=== PATIENT | male | born 1975 | race Caucasian/White ===

== ENCOUNTER → 2018-09-14 09:19 | Outpatient (CLI) | payer OTHER, SELFPAY ==
[2018-09-14 12:26] LABS: Anion Gap 11 (5-15); BUN 14 mg/dL (7-18); BUN/Creat Ratio 13.3 RATIO (10-20); Calcium,Total 8.7 mg/dL (8.5-10.1); Chloride 101 mmol/L (98-107); Cholesterol 258 mg/dL (200); Creatinine, Serum 1.05 mg/dL (0.70-1.30); EST Glomerular Filtration Rate 83 mL/min (>60); Est Glom Filt Rate - Afr Amer 100 mL/min (>60); Glucose 88 mg/dL (74-106); High Density Lipoprotein 40 mg/dL; Potassium 3.4 mmol/L (3.5-5.1); Sodium Level 138 mmol/L (136-145); Triglycerides 192 mg/dL; Uric Acid 8.9 mg/dL (3.5-7.2); Very Low Density Lipoprotein 38 mg/dL (5-40)
--- OUTSIDE RECORDS SUMMARY | 2018-11-16 16:18 | XMS RPT_ITS ---
:1975 Author Organization [facility] Care Team Providers Name Role Phone Edison Keen Attending Unavailable Edison Keen Primary Care Unavailable PROBLEMS PROBLEMS No Problem Records FoundPROCEDURES PROCEDURES No Procedure Records FoundRESULTS RESULTS BASIC METABOLIC Collected: 09/14/2018 Status: F Source: [facility]ILY[facility] PROFILE (BMP) 9:21 AM [facility] REPOSITORY TYPE CODE TESTS RESULT OUT OF RANGE REFERENCE UNITS LAB L501.0100 74-106 mg/dL Normal GLU 88 Result Comment: Please note revised GLUCOSE reference range effective 2017. LAB L501.1000 7-18 mg/dL Normal BUN 14 LAB L501.1100 0.70-1.30 mg/dL Normal CREAT,SERUM 1.05 Result Comment: The validity of the calculated GFR AND GFRAA in patients over 70 years has not been determined. Clinical correlation is essential. LAB L501.1110 >60 mL/min Normal EST GFR 83 Result Comment: Non- GFR Calc LAB L501.1115 >60 mL/min Normal EST GFR - AA 100 Result Comment: GFR Calc LAB L501.1300 10-20 RATIO Normal BUN/CRE 13.3 LAB L501.2200 8.5-10.1 mg/dL CA Normal 8.7 LAB L501.5300 136-145 mmol/L NA Normal 138 LAB L501.5600 3.5-5.1 mmol/L Low K 3.4 LAB L501.5900 98-107 mmol/L CL Normal 101 LAB L501.6100 21.0-32.0 mmol/L Normal CO2 26.0 LAB L501.6200 5-15 Normal GAP 11 Performed By: #### L500.2500, L500.4100, L501.1400 #### [facility] [address] [place], [place], [id number] LIPID PROFILE Collected: 09/14/2018 Status: F Source: [place] 9:21 AM [facility] REPOSITORY TYPE CODE TESTS RESULT OUT OF RANGE REFERENCE UNITS LAB L501.4900 200 mg/dL High CHOL 258 Result Comment: <200 mg/dL Desirable 200-240 mg/dL Borderline >240 mg/dL High Risk LAB L501.5000 mg/dL Normal TRIG 192 Result Comment: The drugs N-Acetylcysteine and Metamizole may falsely depress this assay. Serum Triglycerides Reference Interval Normal <150 mg/dL Borderline high 150 - 199 mg/dL High 200 - 499 mg/dL Very High > or = 500 mg/dL LAB L501.6400 mg/dL Normal HDL 40 Result Comment: The drugs N-Acetylcysteine and Metamizole may falsely depress this assay. Reference Range HDL <40 mg/dL Low HDL Cholesterol HDL >or= 60 mg/dL High HDL Cholesterol LAB L501.6500 0-130 mg/dL High LDL 180 LAB L501.6600 5-40 mg/dL Normal VLDL 38 Performed By: #### L500.2500, L500.4100, L501.1400 #### [facility] [address] [place], [place], [id number] URIC ACID Collected: 09/14/2018 Status: F Source: [place] 9:21 AM [facility] REPOSITORY TYPE CODE TESTS RESULT OUT OF RANGE REFERENCE UNITS LAB L501.1400 3.5-7.2 mg/dL High URIC 8.9 Result Comment: The drugs N-Acetylcysteine and Metamizole may falsely depress this assay. Performed By: #### L500.2500, L500.4100, L501.1400 #### [facility] [address] [place], [place], [id number] ALLERGIES ALLERGIES No Allergies Records FoundENCOUNTERS ENCOUNTERS ADMIT/DISCHARGE ACCOUNT ADMITTING ENCOUNTER LOCATION SOURCE NUMBER CLASS 09/14/2018 [id number] Ambulatory [address] ing:MFPLAB Repository PAYERS PAYERS ENCOUNTER GUARANTOR PAYER SUBSCRIBER SOURCE 09/14/2018 Celio Kline Primary Celio Billy [id number] Celina Insurance:AULTCARELito HastingsDOB: [address] [facility]: [id number], [id number] [place]ository [place] [address]Qnz: Date:[id number]) [address]WP: 09/14/2018 Secondary NOT GIVENUNK Marilynn Insurance:SELF PAY [facility] Number: Effective Repository Date:2018-09-14
== END ==
PROVIDERS: Family Provider Family Medicine; PCP Family Medicine; Visit Provider Family Medicine
DX: N20.1 Calculus of ureter (principal); I10 Essential (primary) hypertension; E78.00 Pure hypercholesterolemia, unspecified
CPT/HCPCS: 36415; 80048; 80061; 84550

== ENCOUNTER → 2018-12-15 | Outpatient (CLI) | payer OTHER, SELFPAY ==
--- NOTE | 2018-12-15 16:29 | RAD_ITS ---
STUDY: X-RAY CHEST REASON FOR EXAM: Male, 43 years old. History of pneumonia. Cough and hypoxemia. TECHNIQUE: PA and lateral chest COMPARISON: None. FINDINGS: The lungs are clear and expanded. Normal cardiomediastinal silhouette, thuan and pleural margins. No acute osseous or upper abdominal process. RAD/Chest PA and Lateral IMPRESSION: No acute cardiopulmonary process. Electronically Signed: Refugio Mendez MD at 17:16 EDT Tel , Service support ,
[2018-12-15 17:35] LABS: Absolute Lymphocyte Count 2.72 X10^3/ul (0.83-4.51); Absolute Neutrophil Count 4.2 X10^3/uL (2.0-7.7); Basophil# 0.02 X10^3/uL; Basophil% 0.3 % (0-1); Eosinophil# 0.22 X10^3/uL; Eosinophils% 2.8 % (0-5); Hematocrit 44.2 % (40-54); Hemoglobin 15.3 g/dl (13.0-16.5); Lymphocyte # 2.72 X10^3/ul (4.0); Lymphocyte % 34.9 % (19-41); Mean Corp Hgb Conc 34.6 g/gl (32-36); Mean Corpuscular Hgb 30.5 pg (27.0-32.0); Mean Corpuscular Volume 88.2 fL (80-94); Mean Platelet Vol. 9.4 fl (6.2-12.0); Monocyte# 0.64 X10^3/uL; Monocyte% 8.2 % (0-10); Neutrophil # 4.18 X10^3/uL (2.7-7.7); Neutrophil % 53.5 % (47-70); POSITIVE COUNT NO; POSITIVE DIFFERENTIAL NO; POSITIVE MORPHOLOGY NO; Platelet Count 192 K/mm3 (150-450); RBC Distribution Width SD 41.2 fl (35.1-43.9); Red Blood Count 5.01 M/mm3 (4.6-6.2); White Blood Count 7.8 K/mm3 (4.4-11.0)
[2018-12-15 17:44] LABS: Anion Gap 7 (5-15); BUN 21 mg/dL (7-18); Calcium,Total 8.8 mg/dL (8.5-10.1); Chloride 101 mmol/L (98-107); EST Glomerular Filtration Rate 87 mL/min (>60); Est Glom Filt Rate - Afr Amer 106 mL/min (>60); Glucose 104 mg/dL (74-106); Potassium 3.2 mmol/L (3.5-5.1); Sodium Level 139 mmol/L (136-145)
== END | disposition home or self-care (01) ==
LOC: MTLAB 16:27
PROVIDERS: Family Provider Family Medicine; PCP Family Medicine; Referring Provider Nurse Practitioner Adult Health; Visit Provider Nurse Practitioner Adult Health
DX: R09.02 Hypoxemia (principal); R53.83 Other fatigue
CPT/HCPCS: 36415; 71046; 80048; 85025

== ENCOUNTER → 2020-02-24 10:54 | Outpatient (CLI) | payer OTHER, SELFPAY ==
[2020-02-24 12:10] LABS: AST(SGOT) 22 U/L (15-37); Alanine Aminotransfer ALT/SGPT 44 U/L (16-61); Albumin, Serum 3.7 g/dL (3.2-5.0); Alkaline Phosphatase 45 U/L (45-117); Anion Gap 8 (5-15); BUN 17 mg/dL (7-18); BUN/Creat Ratio 18.7 RATIO (10-20); Calcium,Total 8.4 mg/dL (8.5-10.1); Chloride 102 mmol/L (98-107); Cholesterol 234 mg/dL (200); Creatinine, Serum 0.91 mg/dL (0.70-1.30); EST Glomerular Filtration Rate 97 mL/min (>60); Est Glom Filt Rate - Afr Amer 117 mL/min (>60); Globulin 3.6 g/dL (2.2-4.2); Glucose 110 mg/dL (74-106); High Density Lipoprotein 37 mg/dL; Potassium 3.4 mmol/L (3.5-5.1); Protein, Total 7.3 g/dL (6.4-8.2); Sodium Level 138 mmol/L (136-145); Triglycerides 274 mg/dL; Very Low Density Lipoprotein 55 mg/dL (5-40)
== END ==
PROVIDERS: PCP Family Medicine; Referring Provider Family Medicine; Visit Provider Family Medicine
DX: E78.00 Pure hypercholesterolemia, unspecified (principal); I10 Essential (primary) hypertension
CPT/HCPCS: 36415; 80053; 80061

== ENCOUNTER → 2021-03-02 08:10 | Outpatient (CLI) | payer OTHER, SELFPAY ==
[2021-03-02 12:48] LABS: ALB/GLOB Ratio 1.2 RATIO (0.9-2.4); AST(SGOT) 13 U/L (15-37); Alanine Aminotransfer ALT/SGPT 34 U/L (16-61); Albumin, Serum 3.7 g/dL (3.2-5.0); Alkaline Phosphatase 42 U/L (45-117); Anion Gap 5 (5-15); BUN 11 mg/dL (7-18); BUN/Creat Ratio 11.3 RATIO (10-20); Calcium,Total 8.5 mg/dL (8.5-10.1); Chloride 105 mmol/L (98-107); Cholesterol 218 mg/dL (200); Creatinine, Serum 0.98 mg/dL (0.70-1.30); EST Glomerular Filtration Rate 89 mL/min (>60); Est Glom Filt Rate - Afr Amer 108 mL/min (>60); Globulin 3.2 g/dL (2.2-4.2); Glucose 84 mg/dL (74-106); High Density Lipoprotein 44 mg/dL; Potassium 3.9 mmol/L (3.5-5.1); Protein, Total 6.9 g/dL (6.4-8.2); Sodium Level 138 mmol/L (136-145); Triglycerides 151 mg/dL; Very Low Density Lipoprotein 30 mg/dL (5-40)
== END ==
PROVIDERS: PCP Family Medicine; Visit Provider Family Medicine
DX: I10 Essential (primary) hypertension (principal)
CPT/HCPCS: 36415; 80053; 80061

== ENCOUNTER → 2022-04-22 | Outpatient (CLI) | payer OTHER, SELFPAY ==
[2022-04-22 12:40] LABS: Absolute Lymphocyte Count 2.74 X10^3/uL (0.83-4.51); Absolute Neutrophil Count 5.1 X10^3/uL (2.0-7.7); Basophil# 0.05 X10^3/uL; Basophil% 0.6 % (0-1); Eosinophil# 0.22 X10^3/uL; Eosinophils% 2.5 % (0-5); Hematocrit 47.2 % (40-54); Hemoglobin 16.6 g/dL (13.0-16.5); Lymphocyte # 2.74 X10^3/ul (0.83-4.51); Mean Corp Hgb Conc 35.2 g/dL (32-36); Mean Corpuscular Volume 85.2 fL (80-94); Mean Platelet Vol. 10.3 fl (6.2-12.0); Monocyte# 0.68 X10^3/uL; Monocyte% 7.7 % (0-10); NRBC Flagged by Analyzer 0 % (0-5); Neutrophil # 5.14 X10^3/uL (2.7-7.7); Platelet Count 215 K/mm3 (150-450); RBC Distribution Width CV 11.9 % (11.6-14.6); RBC Distribution Width SD 36.6 fl (35.1-43.9); Red Blood Count 5.54 M/mm3 (4.6-6.2); White Blood Count 8.9 K/mm3 (4.4-11.0)
[2022-04-22 12:58] LABS: ALB/GLOB Ratio 1.1 RATIO (0.9-2.4); AST(SGOT) 18 U/L (15-37); Alanine Aminotransfer ALT/SGPT 32 U/L (16-61); Albumin, Serum 3.7 g/dL (3.2-5.0); Alkaline Phosphatase 37 U/L (45-117); Anion Gap 7 (5-15); BUN 14 mg/dL (7-18); BUN/Creat Ratio 12.8 RATIO (10-20); Calcium,Total 9.2 mg/dL (8.5-10.1); Chloride 105 mmol/L (98-107); Cholesterol 229 mg/dL (200); Creatinine, Serum 1.09 mg/dL (0.70-1.30); EST Glomerular Filtration Rate 78 mL/min (>60); Est Glom Filt Rate - Afr Amer 94 mL/min (>60); Globulin 3.3 g/dL (2.2-4.2); Glucose 108 mg/dL (74-106); High Density Lipoprotein 40 mg/dL; Potassium 3.4 mmol/L (3.5-5.1); Sodium Level 139 mmol/L (136-145); Triglycerides 256 mg/dL; Very Low Density Lipoprotein 51 mg/dL (5-40)
[2022-04-22 13:57] LABS: Hemoglobin A1c 5.7 % (3.8-5.6)
== END | disposition home or self-care (01) ==
LOC: MFPLAB 09:56
PROVIDERS: Family Medicine; PCP Family Medicine; Visit Provider Family Medicine
DX: I10 Essential (primary) hypertension (principal); E66.01 Morbid (severe) obesity due to excess calories; E78.00 Pure hypercholesterolemia, unspecified
CPT/HCPCS: 36415; 80053; 80061; 83036; 85025